=== PATIENT | male | born 1995 | race Caucasian/White ===

== ENCOUNTER 2018-12-18 10:14 | Emergency (ER) | payer BC, OTHER ==
[~2018-12-18] VITALS: Ht 182.9 cm; Wt 77.1 kg
[2018-12-18] MEDS ORDERED: LIDOCAINE 2% VISCOUS 15 ML UDC ONE (10:16)
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
[2018-12-18] MEDS ORDERED: AMOX500C2 PO (10:33)
[2018-12-18] MEDS ORDERED: LIDOCAINE 2% VISCOUS 15 ML UDC PO ONE (10:45)
[2018-12-18 12:08] VITALS: BP 124/94
== END 2018-12-18 10:55 | disposition home or self-care (01) ==
LOC: ER 10:15
DX: T23.231A Burn of second degree of multiple right fingers (nail), not including thumb, initial encounter (principal); T31.0 Burns involving less than 10% of body surface; Z91.040 Latex allergy status; Z88.8 Allergy status to other drugs, medicaments and biological substances; X02.8XXA Other exposure to controlled fire in building or structure, initial encounter
CPT/HCPCS: 99282